=== PATIENT | male | born 2005 | race Caucasian/White ===

== ENCOUNTER 2024-02-21 21:45 | Emergency (ER) | payer SELFPAY ==
[2024-02-21 21:50] VITALS: BP 115/72; PULSE 75; RESP 18; TEMP 36.6; O2SAT 98; BMI 31.0
[2024-02-22 01:53] VITALS: BP 127/69; PULSE 64; RESP 16; TEMP 36.4; O2SAT 97
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
[2024-02-22] MEDS: Silver Sulfadiazine 1 % Cream 20 GM TUBE 1 APPL TOPICAL (02:59)
[2024-02-22 03:03] VITALS: BP 127/69; PULSE 64; RESP 16; TEMP 36.4; O2SAT 97
== END 2024-02-22 03:04 | disposition home or self-care (01) ==
PROVIDERS: Emergency Provider Internal Medicine
DX: T23.262A Burn of second degree of back of left hand, initial encounter (principal); X02.8XXA Other exposure to controlled fire in building or structure, initial encounter; Y93.G3 Activity, cooking and baking; Y92.000 Kitchen of unspecified non-institutional (private) residence as the place of occurrence of the external cause; Y99.9 Unspecified external cause status
CPT/HCPCS: 16000; 99283

== ENCOUNTER 2024-06-08 11:19 | Emergency (ER) | payer MEDICAID, SELFPAY ==
[2024-06-08 11:57] VITALS: BP 108/65; PULSE 70; RESP 18; TEMP 36.6; O2SAT 98; BMI 34.2
--- NOTE | 2024-06-08 11:57 | ED_ITS ---
HPI - General Adult General Chief complaint: Dental/Oral Stated complaint: Dental Pain Time Seen by Provider: 06/08/24 12:05 Source: patient Mode of arrival: ambulatory Limitations: no limitations History of Present Illness ED Provider: Raiza Ruano PA-C HPI narrative: Patient is a 18 year old assigned male at with no reported medical history presenting to the emergency department today with right upper and lower dental pain. Patient states that over the last month he has had right upper and right lower dental pain. Patient states it has been years since he last saw a dentist. Patient states that he attempted to go to urgent care yesterday but they would not take his CT based insurance. Patient denies any dizziness, lightheadedness, abdominal pain, nausea, vomiting, fever, chills, blurry vision, double vision, loss of vision, chest pain, difficulty breathing, shortness of breath, back pain, night sweats, pain with urination, increased urinary frequency, increased urinary urgency, blood in his urine or stool, syncope or a near syncopal episode, recent trauma or falls, bowel incontinence, bladder incontinence, or any other complaints at this time. Onset (ago): month(s) (1) Location: mouth and right Relieving factors: none Exacerbating factors: none Associated symptoms: denies other symptoms Treatments prior to arrival: none Related Data Previous Rx's ?Medication ?Instructions ?Recorded naproxen 500 mg tablet 500 mg PO BID 7 days #14 tabs 06/08/24 penicillin V potassium 500 mg 500 mg PO BID 10 days #20 tabs 06/08/24 tablet Allergies Allergy/AdvReac Type Severity Reaction Status Date / Time No Known Allergies Allergy Verified 06/08/24 11:58 Review of Systems Constitutional: Constitutional: Reports no additional constitutional complaints, Denies chills, Denies fever(s) and Denies night sweats Eyes: Eyes: Reports no additional eye complaints, Denies blurry vision, Denies change in vision, Denies diplopia, Denies eye discharge, Denies loss of vision and Denies eye pain ENT: Denies dizziness Comments: right sided upper and lower dental pain Cardiovascular: Cardiovascular: Reports no additional cardiovascular complaints, Denies chest pain, Denies lightheadedness, Denies Loss of Consciousness and Denies dyspnea Respiratory: Respiratory: Reports no additional respiratory complaints and Denies dyspnea Gastrointestinal: Gastrointestinal: Reports no additional gastrointestinal complaints, Denies abdominal pain, Denies melena, Denies hematochezia, Denies change in bowel habits and Denies change in stool character Genitourinary: Genitourinary: Reports no additional male genitourinary complaints, Denies hematuria, Denies oliguria, Denies difficulty urinating, Denies dysuria, Denies urinary frequency, Denies urinary hesitancy, Denies urinary incontinence and Denies urinary urgency Musculoskeletal: Musculoskeletal: Reports no additional musculoskeletal complaints, Denies numbness and Denies tingling Neurologic: Denies dizziness, Denies loss of vision, Denies numbness and Denies tingling Psychiatric: Psychiatric: Reports no additional psychiatric complaints Endocrine: Endocrine: Reports no additional endocrine complaints Hematologic/Lymphatic: Hematologic/Lymphatic: Reports no additional hematol ogic/lymphatic complaints Allergic/Immunologic: Allergic/Immunologic: Reports no additional allergic/immunologic complaints PMFSH Past Medical History Attestation statement: The following information was validated with the patient. Source: old records reviewed and nursing notes reviewed Social History Social History Advance Directives: No Advance Directives Information Provided: Yes Physical Exam ED Vital Signs: Vital Signs - 24 hr 06/08/24 11:57 06/08/24 12:15 Temperature 97.9 F 97.9 F Pulse Rate 70 70 Respiratory Rate 18 18 Blood Pressure 108/65 108/65 Pulse Oximetry 98 98 Oxygen Delivery Method Room Air Room Air BMI result Body Mass Index 34.2 Const General: cooperative, no acute distress, alert and awake Nutritional Appearance: well nourished Orientation/consciousness: patient oriented x3 Limitations: no limitations [facility] Head: Yes normal to inspection and Yes atraumatic Ears: hearing grossly normal bilaterally and external ears normal General nose exam: Normal external nose present, no nasal discharge noted and no epistaxis Face and sinus: Yes normal facial exam, No abrasion and No laceration Mouth: Normal oral and palatal mucosa present, no drooling and no muffled voice Teeth and gingiva: poor dentition and other (large dental cavity in tooth 31 with minimal erythema / pain with palpation) Eyes General: appearance normal, both eyes and all related structures Periorbital: periorbital findings normal Eyelids: Yes eyelids normal Conjunctivae: conjunctivae normal Pupils: Equal, round and reactive pupils present EOM: EOMs intact bilaterally Neck Neck: Yes normal visual inspection, Yes full ROM and Yes no lymphadenopathy Chest Chest palpation & inspection: normal inspection of the chest Resp Effort & Inspection: normal respiratory effort and able to speak in complete sentences GI Inspection: Yes normal to inspection Neuro General: patient oriented x3, moves all extremities and CN's II-XI intact bilaterally Cranial nerves: Yes Equal, round and reactive pupils present Cognition (Neuro): normal cognition Extrem General: Yes normal to inspection, Yes full ROM and Yes capillary refill normal Psych Appearance: grossly normal Mental Status: mental status grossly normal Affect: normal affect Attitude: cooperative Thought process: Normal thought process present Thought content: Normal thought content present Insight: Good insight present (Psych) Medical Decision Making Medical Decision Making MDM Narrative: Patient is a 18 year old assigned male at with no reported medical history presenting to the emergency department today with right upper and lower dental pain. Patient's physical exam was as noted in the physical exam portion of this note. Patient's clinical presentation is most consistent with poor dentition and possible developing infection. I explained my physical exam findings to the patient. I answered all questions asked by the patient. I stressed the importance of the patient taking his medication as directed (either prescribed or as the over the counter packaging recommends). I confirmed with the patient that he had no concerns of being able to pay for his prescriptions at the pharmacy of his choice. I stressed the importance of the patient following up with his primary care provider and a dentist. I stressed the importance of the patient returning to the emergency department immediately if his symptoms were to worsen or if he were to develop any dizziness, shortness of breath, difficulty breathing, chest pain, blurry vision, loss of vision, nausea, vomiting, abdominal pain, fever, chills, back pain, or any other complaints. Patient verbalized agreement and understanding with this treatment plan and discharge. Differential Diagnosis Differential Diagnoses: The differential diagnosis associated with the presentation includes Dental pain Dental caries Dental infection Admission/Observation Consideration of admission/observation: Escalation of care including admission/observation considered Patient would have been admitted to the hospital had his clinical presentation warranted hospital admission. Prescription Management I considered prescription management with: Pain Medication (patient prescribed pain medication) and Antibiotic (patient prescribed an antibiotic for possible developing dental infection) Discharge Plan Discharge Clinical Impression: Toothache, Dental infection Patient Disposition: Home, Self-Care Instructions: Dental Abscess (ED), Toothache (ED) Additional Instructions: Follow up with your primary care provider and a dentist. Return to the emergency department immediately if your symptoms worsen or if you develop any numbness, tingling, dizziness, shortness of breath, difficulty breathing, chest pain, blurry vision, loss of vision, nausea, vomiting, abdominal pain, fever, chills, back pain, or any other complaints. Call or visit any of the clinics below to establish with a dentist: [facility] [address] [place] [address] [facility] [address] [place] [address] [facility] [[email or web address]] [address] [facility], [address] [address] [facility] [address] [place] [id number] [facility] [address] [place] [address] [place] [address] [place] [address] Please see the information below about our Patient Portal. If you are not yet enrolled in the [facility] Patient Portal, you will receive an enrollment email invitation following your visit to any [facility] setting. You may also self-enroll in the Patient Portal by visiting our website: [email or web address] The following information is required to access the Patient Portal: - Your [facility] Medical Record Number - Your personal home email address (must match what is in your electronic medical record, Registration staff can assist with this) - Name - Date of Capabilities of the Patient Portal: - Message some providers - View upcoming appointments - Access your health summary, medical history, and visit history - View current conditions and allergies - View procedure and lab results - View your medications, including guidelines, side effects, and precautions - Complete pre-appointment questionnaires requested by your provider - Ready summary reports of your office visits and procedures To access the Patient Portal Mobile Jake, follow these directions: - Search [employer] in the Jake Store or Google Play Store - Download the Jake - Search for [facility] - Enter your login/password Prescriptions: New penicillin V potassium 500 mg tablet 500 mg PO BID 10 Days Qty: 20 0RF naproxen 500 mg tablet 500 mg PO BID 7 Days Qty: 14 0RF Referrals: [facility] Family Medicine [Provider Group] (Call to establish and follow up with a primary care provider. If you already have a primary care provider, please follow up with them.) [facility] Primary CareDennis [Provider Group] (Call to establish and follow up with a primary care provider. If you already have a primary care provider, please follow up with them.) [facility] Primary CareDae [Provider Group] (Call to establish and follow up with a primary care provider. If you already have a primary care provider, please follow up with them.) [facility] Primary CareMarcelino [Provider Group] (Call to establish and follow up with a primary care provider. If you already have a primary care provider, please follow up with them.) Stand Alone Forms: Work/School Release Interventions: ED Discharge Assessment Last Done: 06/08/24 12:15 Discharge Date/Time: 06/08/24 12:15 Print Language: Polish
[2024-06-08 12:15] VITALS: BP 108/65; PULSE 70; RESP 18; TEMP 36.6; O2SAT 98
--- OUTSIDE RECORDS SUMMARY | 2024-06-08 14:02 | XMS_ITS | Patient Health Record ---
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 Notes/Report: Received Date: FASTING: UNKNOWN medMATCH Summary See Note Prescribed Prescribed Not Prescribed Consistent Inconsistent Inconsistent Amphetamine Marijuana Metabolite Buprenorphine NEGATIVE <5 ng/mL Fentanyl NEGATIVE <0.5 ng/mL Desmethyltramadol NEGATIVE <100 ng/mL Tramadol NEGATIVE <100 ng/mL Tramadol Comments See Note See LDT No sang Alcohol Metabolites NEGATIVE <500 ng/mL Amphetamines POSITIVE <500 ng/mL Amphetamine 1538 <250 ng/mL medMATCH Amphetamine INCONSISTENT Amphetamines Comments See Note See Am phetamines Notes, LDT Notes Barbiturates NEGATIVE <300 ng/mL Benzodiazepines NEGATIVE <100 ng/mL Cocaine Metabolite NEGATIVE <150 ng/mL 6 Acetylmorphine NEGATIVE <10 ng/mL Marijuana Metabolite POSITIVE <20 ng/mL Marijuana Metabolite >5000 <5 ng/mL medMATCH Marijuana Metab INCONSISTENT Marijuana Comments See Note See Adri damian Notes, LDT Notes Methadone Metabolite NEGATIVE <100 ng/mL Opiates NEGATIVE <100 ng/mL Oxycodone NEGATIVE <100 ng/mL Creatinine 77.5 > or = 20.0 mg/dL pH 7.1 4.5-9.0 Oxidant NEGATIVE <200 mcg/mL Notes and Comments See Note This drug testing is for medical treatment only. Analysis was performed as non-forensic testing and these results should be used only by healthcare providers to render diagnosis or treatment, or to monitor progress of medical conditions. Amphetamines Notes: Amphetamine detected is consistent with the use of the drug Amphetamine. Amphetamine can be a prescribed drug and is also a metabolite of methamphetamine. Marijuana Notes: Marijuana Metabolite detected is consistent with exposure to Marijuana (THC) and/or hemp derived products. Some jurisdictions do not include hemp within the definition of Marijuana. LDT Notes: Confirmation tests were developed and their analytical performance characteristics have been determined by [facility]. It has not been cleared or approved by the FDA. This assay has been validated pursuant to the CLIA regulations and is used for clinical purposes. medMATCH(R) enables providers to identify if drug use is consistent or inconsistent with a corresponding prescribed medication(s) list. Healthcare Providers needing Interpretation assistance, please contact us at [phone] ( ) M-F, 8am to 10pm EST Methamphetamine NEGATIVE <250 ng/mL Phencyclidine NEGATIVE <25 ng/mL Rapid Strep Test IH Reviewed date:03/27/2024 12:48:42 PM Interpretation:Positive Performing Lab: Notes/Report: Positive Lot No. [id number] Exp. Date 09/14/25 result pos Internal Proc. Control Solution green Internal Proc. Control Cartridge present Reason For Referral No Information Medications Medication SIG (Take, Route, Frequency, Duration) Notes Start Date End Date Status Polymyxin B-Trimethoprim 05971-2.1 UNIT/ML 1 drop into affected eye Ophthalmic Four times a day for 5 days 03/27/2024 Active Propranolol HCl 20 MG 1 tablet Orally Twice a day for 30 day(s) 12/22/2021 Not-Taking Sertraline HCl 25 MG 3 tablets Orally At Bedtime for 90 days Please remind patient to take 2 tablets of sertraline from 12.10.21-12.24.21. On 12.25.21 patient was instructed to take 3 tablets at bedtime. Not-Taking Adderall 10 MG 1 tablet Orally in the afternoon for 90 days 90 days supply, provider on leave Active Adderall 20 MG 1 tab(s) orally In the Morning for 90 days 90 days supply, provider on leave Active Sertraline HCl 100 MG 1 tablet Orally Once a day for 30 days Active Penicillin V Potassium 500 MG 1 tablet Orally Twice a day for 10 day(s) 03/27/2024 Active Albuterol Sulfate 108 (90 Base) MCG/ACT 2 puff as needed Inhalation every 4 hrs prn for 30 days may use generic covered by insurance 02/16/2022 Not-Taking SUMAtriptan Succinate 50 MG 1 tab(s) orally once and may take a second dose after two hours only if the symptoms persist. Not to exceed 2 doses in 24 hours for 30 days 12/22/2021 Not-Taking Sertraline HCl 100 MG 1 tablet Orally Once a day for 90 days Active Immunizations Vaccine Route Administration Date Status Comme nts COVID-19 Pfizer BioNTech 12+ ([facility] Imported) 208 Unknown 07/01/2020 Administered COVID-19 Pfizer BioNTech 12+ ([facility] Imported) 208 Unknown 07/23/2020 Administered COVID-19 Pfizer BioNTech Vaccine (HRSA) IM Intramuscular 03/09/2021 Administered eua given DTaP ([facility] Imported) 107 Unknown 01/14/2005 Administer ed DTaP (Historical) Unknown 2003 Administered DTaP (Historical) Unknown 2003 Administered DTaP (Historical) Unknown 02/04/2004 Administered DTaP (Historical) Unknown 01/14/2005 Administered DTaP (Historical) Unknown 10/24/2007 Administered Hep A Pediatric (State Supplied) IM Intramuscular 12/18/2012 Administered Hep A Pediatric (State Supplied) IM Intramuscular 07/11/2013 Administered Hep B ([facility] Imported) 45 Unknown 2003 Administer ed Hep B ([facility] Imported) 45 Unknown 2003 Administer ed Hep B (Historical Adult) Unknown 2003 Administere d Hep B (Historical Adult) Unknown 2003 Administere d Hep B (Historical Adult) Unknown 05/05/2004 Administere d Hib (Historical Type Unknown) Unknown 2003 Administered Hib (Historical Type Unknown) Unknown 2003 Administered Hib (Historical Type Unknown) Unknown 02/04/2004 Administered Hib (Historical Type Unknown) Unknown 01/15/2005 Administered Hib Unspecified ([facility] Imported) 17 Unknown 01/14/2005 Administered HPV (Declined) Unknown 11/13/2014 Pending HPV (State Supplied) IM Intramuscular 04/26/2016 Administe red HPV (State Supplied) IM Intramuscular 11/11/2016 Administe red Influenza (VFC 3 and above preservative free) IM Intramuscular 12/18/2012 Administered Influenza (VFC 3 and above preservative free) IM Intramuscular 11/13/2014 Administered Influenza Quad (VFC 3 and above preservative free) IM Intramuscular 01/24/2014 Administered Influenza Quad (VFC 3 and above preservative free) IM Intramuscular 02/05/2016 Administered Influenza Quad (VFC 3 and above preservative free) IM Intramuscular 11/11/2016 Administered Influenza Quad (VFC 3 and above preservative free) IM Intramuscular 01/23/2018 Administered Influenza Quad FluLaval (State Supplied 6mo+ preservative free) IM Intramuscular 01/02/2019 Administered Influenza Quad FluLaval (State Supplied 6mo+ preservative free) IM Intramuscular 12/27/2019 Administered Influenza Quad FluLaval (State Supplied 6mo+ preservative free) IM Intramuscular 03/19/2021 Administered IPV (Historical) Unknown 2003 Administered IPV (Historical) Unknown 2003 Administered IPV (Historical) Unknown 08/05/2005 Administered IPV (Historical) Unknown 10/24/2007 Administered Mening (Declined) Unknown 11/13/2014 Pending Mening Conj. Menactra MCV4P (State supplied) IM Intramuscular 11/27/2014 Administered Mening Conj. Menactra MCV4P (State supplied) IM Intramuscular 10/14/2020 Administered MMR (Historical) Unknown 08/03/2004 Administered MMR (Historical) Unknown 10/23/2005 Administered PCV 7 (Before 4-2010 Historical) Unknown 2003 Administered PCV 7 (Before Historical) Unknown 2003 Administered PCV 7 (Before Historical) Unknown 02/04/2004 Administered PCV 7 (Before Historical) Unknown 08/03/2004 Administered Tdap (Declined) Unknown 11/13/2014 Pending Tdap (State supplied) IM Intramuscular 11/27/2014 Administ ered Varicella (Historical) Unknown 08/03/2004 Administered Varicella (Historical) Unknown 10/24/2007 Administered Social History Tobacco Use: Social History Observation Description Date Details (start date - stop date) Current Smoker NA - NA Sex Assigned At : Social History Observation Description Sex Assigned At Male Smoking Question Answer Notes Are you a: never smoker Sexual History Question Answer Notes Had sex in the past 12 months Yes with Women only Have you ever had an STD? No Tobacco Control (Standard) Question Answer Notes Tobacco use: Current every day smoker Section Notes: lives w mom no smokers at ho me lives w mom lives w mom lives w mom lives w mom lives w mom lives w mom lives w mom lives w mom lives w mom lives w mom lives w mom lives w mom lives w mom lives w mom lives w mom lives w mom lives w mom lives w mom lives w mom lives w mom lives w mom lives w mom lives w mom lives w mom lives w mom lives w mom lives w mom lives w mom lives w mom lives w mom lives w mom lives w mom lives w mom lives w mom lives w mom lives w mom lives w mom lives w mom lives w mom no smokers at ho me lives w mom no smokers at ho me lives w mom no smokers at ho me lives w mom no smokers at ho me lives w mom no smokers at ho me lives w mom no smokers at ho me lives w mom no smokers at ho me lives w mom no smokers at ho me lives w mom no smokers at ho me lives w mom no smokers at ho me lives w mom no smokers at ho me lives w mom no smokers at ho me lives w mom no smokers at ho me lives w mom no smokers at ho me lives w mom no smokers at ho me lives w mom no smokers at ho me lives w mom no smokers at ho me lives w mom no smokers at ho me lives w mom no smokers at ho me lives w mom no smokers at ho me Problems Problem Type SNOMED Code ICD Code Onset Dates Problem Status W/U Status Risk Notes Problem [id number] Generalized anxiety disorder (F41.1) Active confirmed Problem [id number] Alcohol use disorder, mild, abuse (F10.10) Active confirmed Problem 8904511 ADHD (attention deficit hyperactivity disorder), predominantly hyperactive impulsive type (F90.1) Active confirmed Problem 0438904 Migraine with aura and without status migrainosus, not intractable (G43.109) Active confirmed Problem Generalized anxiety disorder (85736149) Anxiety neurosis (F41.1) Active confirmed Vital Signs Temperature 97.5 degrees Fahrenheit 03/27/2024 Respiratory Rate 16 /min 03/27/2024 Oximetry 100 % 03/27/2024 Blood pressure diastolic 69 mm Hg 06/21/2023 Height 67 in 06/21/2023 BMI Percentile 98.38 % 06/21/2023 Blood pressure systolic 123 mm Hg 06/21/2023 Weight 220.2 lbs 06/21/2023 BMI 34.48 kg/m2 06/21/2023 Encounters Encounter Location Date Provider Diagnosis [address] [address] 09/15/2023 Ale Gamboa ADHD (attention deficit hyperactivity disorder), predominantly hyperactive impulsive type F90.1 [place] [id number] 06/22/2023 Ale Kalyanil [address] [address] 08/10/2023 Ale Gamboa ADHD (attention deficit hyperactivity disorder), predominantly hyperactive impulsive type F90.[address] [address] 05/01/2024 Renetta Cordoba [address] [address] 06/21/2023 Renetta Cordoba Encounter for medication monitoring Z51.[address] [address] 03/27/2024 Schilling Lawrence Sore throat J02.9 ; Nasal congestion R09.81 ; Bacterial conjunctivitis H10.9 and Strep pharyngitis J02.[address] [place] [address] 10/05/2023 Ale Bayerl ADHD (attention deficit hyperactivity disorder), predominantly hyperactive impulsive type F90.1 and Generalized anxiety disorder F41.[address] [place] [address] 06/21/2023 Ale Bayerl ADHD (attention deficit hyperactivity disorder), predominantly hyperactive impulsive type F90.1 and Generalized anxiety disorder F41.[address] [place] [address] 10/08/2023 Sara Bynum Generalized anxiety disorder F41.1 and ADHD (attention deficit hyperactivity disorder), predominantly hyperactive impulsive type F90.[address] [place] [address] 10/20/2023 Sara Ray ADHD (attention deficit hyperactivity disorder), predominantly hyperactive impulsive type F90.1 and Generalized anxiety disorder F41.[address] [place] [address] 11/03/2023 Sara Ray ADHD (attention deficit hyperactivity disorder), predominantly hyperactive impulsive type F90.1 and Generalized anxiety disorder F41.[address] [place] [address] 11/29/2023 Sara Bynum ADHD (attention deficit hyperactivity disorder), predominantly hyperactive impulsive type F90.1 and Generalized anxiety disorder F41.[address] [place] [address] 12/19/2023 Sara Bynum ADHD (attention deficit hyperactivity disorder), predominantly hyperactive impulsive type F90.1 and Generalized anxiety disorder F41.[address] [place] [address] 01/02/2024 Sara Bynum ADHD (attention deficit hyperactivity disorder), predominantly hyperactive impulsive type F90.1 and Generalized anxiety disorder F41.[address] [place] [address] 06/30/2023 Sara Bynum Generalized anxiety disorder F41.1 and ADHD (attention deficit hyperactivity disorder), predominantly hyperactive impulsive type F90.[address] [place] [address] 07/11/2023 Sara Bynum Generalized anxiety disorder F41.1 and ADHD (attention deficit hyperactivity disorder), predominantly hyperactive impulsive type F90.[address] [place] [address] 01/16/2024 Sara Faulknerpelier ADHD (attention deficit hyperactivity disorder), predominantly hyperactive impulsive type F90.1 and Generalized anxiety disorder F41.[address] [place] [address] 05/15/2024 Sara Faulknerpelier ADHD (attention deficit hyperactivity disorder), predominantly hyperactive impulsive type F90.1 and Generalized anxiety disorder F41.[address] [place] [address] 05/28/2024 Sara Faulknerpelier ADHD (attention deficit hyperactivity disorder), predominantly hyperactive impulsive type F90.1 and Generalized anxiety disorder F41.[address] [place] [address] 01/03/2024 Ale Cooper ADHD (attention deficit hyperactivity disorder), predominantly hyperactive impulsive type F90.1 and Generalized anxiety disorder F41.1 Assessments Encounter Date Diagnosis (ICD Code) Assessment Notes Treatment Notes Treatment Clinical Notes Section Notes 06/21/2023 Encounter for medication monitoring (ICD-10 - Z51.81) UDS collected with problems and sent to lab. Controlled med agreement reviewed with pt, he verbalzied good understanding. Agreement then signed and will be scanned to chart. 06/21/2023 ADHD (attention deficit hyperactivity disorder), predominantly hyperactive impulsive type (ICD-10 - F90.1) 06/30/2023 Generalized anxiety disorder (ICD-10 - F41.1) 07/11/2023 Generalized anxiety disorder (ICD-10 - F41.1) 10/05/2023 ADHD (attention deficit hyperactivity disorder), predominantly hyperactive impulsive type (ICD-10 - F90.1) Coding; use Established E&M Add 95 Modifier for video 10/08/2023 Generalized anxiety disorder (ICD-10 - F41.1) Coding: use Established E&M code Add FQ modifier for audio only . Coding: use Established E&M code Add FQ modifier for audio only 08/10/2023 ADHD (attention deficit hyperactivity disorder), predominantly hyperactive impulsive type (ICD-10 - F90.1) 09/15/2023 ADHD (attention deficit hyperactivity disorder), predominantly hyperactive impulsive type (ICD-10 - F90.1) 10/20/2023 ADHD (attention deficit hyperactivity disorder), predominantly hyperactive impulsive type (ICD-10 - F90.1) Coding: use Established E&M code Add FQ modifier for audio only 11/03/2023 ADHD (attention deficit hyperactivity disorder), predominantly hyperactive impulsive type (ICD-10 - F90.1) Coding: use Established E&M code Add FQ modifier for audio only 11/29/2023 ADHD (attention deficit hyperactivity disorder), predominantly hyperactive impulsive type (ICD-10 - F90.1) Coding: use Established E&M code Add FQ modifier for audio only 12/19/2023 ADHD (attention deficit hyperactivity disorder), predominantly hyperactive impulsive type (ICD-10 - F90.1) Coding: use Established E&M code Add FQ modifier for audio only 01/02/2024 ADHD (attention deficit hyperactivity disorder), predominantly hyperactive impulsive type (ICD-10 - F90.1) Coding: use Established E&M code Add FQ modifier for audio only 01/16/2024 ADHD (attention deficit hyperactivity disorder), predominantly hyperactive impulsive type (ICD-10 - F90.1) Coding: use Established E&M code Add FQ modifier for audio only 03/27/2024 Nasal congestion (ICD-10 - R09.81) 03/27/2024 Sore throat (ICD-10 - J02.9) 01/03/2024 ADHD (attention deficit hyperactivity disorder), predominantly hyperactive impulsive type (ICD-10 - F90.1) Coding; use Established E&M Add 95 Modifier for video. Psychotherapy Visit Only: Add FQ modifier for audio only Psychiatry: Phone Medication Management: Use 31212- (11-20min) 35458 (21-30min) 05/15/2024 ADHD (attention deficit hyperactivity disorder), predominantly hyperactive impulsive type (ICD-10 - F90.1) Coding: use Established E&M code Add FQ modifier for audio only 05/28/2024 ADHD (attention deficit hyperactivity disorder), predominantly hyperactive impulsive type (ICD-10 - F90.1) Coding: use Established E&M code Add FQ modifier for audio only 05/28/2024 Generalized anxiety disorder (ICD-10 - F41.1) Coding: use Established E&M code Add FQ modifier for audio only 05/15/2024 Generalized anxiety disorder (ICD-10 - F41.1) Coding: use Established E&M code Add FQ modifier for audio only 01/16/2024 Generalized anxiety disorder (ICD-10 - F41.1) Coding: use Established E&M code Add FQ modifier for audio only 03/27/2024 Bacterial conjunctivitis (ICD-10 - H10.9) Suspect pink eye based on symptoms and contact with son. Will treat with antibiotic. [place]: Care Instructions material was printed, reviewed and given to patient. F/U in clinic if symptoms do not improve. 01/03/2024 Generalized anxiety disorder (ICD-10 - F41.1) Coding; use Established E&M Add 95 Modifier for video. Psychotherapy Visit Only: Add FQ modifier for audio only Psychiatry: Phone Medication Management: Use 45064- (11-20min) 86883 (21-30min) 01/02/2024 Generalized anxiety disorder (ICD-10 - F41.1) Coding: use Established E&M code Add FQ modifier for audio only 12/19/2023 Generalized anxiety disorder (ICD-10 - F41.1) Coding: use Established E&M code Add FQ modifier for audio only 11/29/2023 Generalized anxiety disorder (ICD-10 - F41.1) Coding: use Established E&M code Add FQ modifier for audio only 11/03/2023 Generalized anxiety disorder (ICD-10 - F41.1) Coding: use Established E&M code Add FQ modifier for audio only 10/05/2023 Generalized anxiety disorder (ICD-10 - F41.1) Coding; use Established E&M Add 95 Modifier for video 10/08/2023 ADHD (attention deficit hyperactivity disorder), predominantly hyperactive impulsive type (ICD-10 - F90.1) Coding: use Established E&M code Add FQ modifier for audio only . Coding: use Established E&M code Add FQ modifier for audio only 10/20/2023 Generalized anxiety disorder (ICD-10 - F41.1) Coding: use Established E&M code Add FQ modifier for audio only 07/11/2023 ADHD (attention deficit hyperactivity disorder), predominantly hyperactive impulsive type (ICD-10 - F90.1) 06/30/2023 ADHD (attention deficit hyperactivity disorder), predominantly hyperactive impulsive type (ICD-10 - F90.1) 06/21/2023 Generalized anxiety disorder (ICD-10 - F41.1) 03/27/2024 Strep pharyngitis (ICD-10 - J02.0) Strep Throat: Care Instructions material was printed, reviewed and given to patient. Highlighted completion of anitbiotic. Work excuse note provided. May have associated viral URI illness. Discussed: , extra hydration with fluids like water; for nasal congestion- nasal saline spray, cool mist humidifier; for sore throat- salt water gargles, eating cold/frozen desserts, sucking on ice or hard candy; for cough- honey, sleeping with head of bed elevated, hot tea/soup, cough lozengers and ibuprofen/tylen ol as needed for fever and/or comfort. If symptoms worsen or no dont resolve f/u in clinic 05/01/2024 Coding; use Established E&M Add 95 Modifier for video. Psychotherapy Visit Only: Add FQ modifier for audio only Psychiatry: Phone Medication Management: Use 01386- (11-20min) 31067 (21-30min) Plan Of Treatment Pending Test Test Name Order Date Comp Metabolic Panel w/eGFR 93623 2014 Comp Metabolic Panel w/eGFR 67910 2015 CBC (H/H,RBC,Indices,WBC,Plt) 1759 10/05 CBC (H/H,RBC,Indices,WBC,Plt) 1759 08/15 TSH 899 08/15/2014 T4,Free 866 08/15/2014 TSH w/Free T4 rfx 91786 10/06/2015 HIV Screen DECLINED 07/10/2021 HIV Screen DECLINED 10/22/2021 Chlamydia/GC Declined 45744 07/10/2021 HCV Cohort screening DECLINED 10/05 Next Appt Details Provider Name:Sara beltran, 06/11/2024 04:30:00 PM, [address] [place] [address], [place], [address], Provider Name:Ale Gamboa , 06/18/2024 02:40:00 PM, [address] [facility], [place], [address], Insurance Providers Payer Name Payer Address Payer Phone Subscriber Number Group Number Insured Name Patient Relationship to Insured Coverage Start Date Coverage End Date Medicaid [place] [address] [phone] [id number] Bryant Prasad Self - patient is the insured [place] [address] [phone] [id number] Bryant Prasad Self - patient is the insured Medical (General) History Medical History History ICD Code - - -MEDICAL HISTORY- - - ADHD Anxiety Allergic Rhinitis Enrolled in [facility] @ [facility] Migraines - - -HEALTH CARE MAINTENANCE- - - HCM - A1c: HCM - Lipids: ASCVD Risk: Assess at 38 HCM GFR/Cr: HCM - Colonoscopy: Due at 43 HCM - PSA: HCM - DEXA: Screening - HIV: Screening - HCV: Screening - Chl/GC: Smoking Hx: Surgical History Surgery Date(Month/Year) Hospitalization History Reason Date(Month/Year)
--- OUTSIDE RECORDS SUMMARY | 2024-06-08 14:02 | XMS_ITS ---
Author Organization [facility] [employer] Address [address] [place] [phone] Care Team Providers Care Headmaster/Mistress Name Role Phone Renetta Lopez Primary Care Provider Sara Ray Unavailable [phone] REASON FOR VISIT * Recall Therapy AT, Tele Phone Visit Social History Sex Assigned At : Social History Observation Description Sex Assigned At Male Encounters Encounter Location Date Provider Diagnosis [place] [id number] 05/28/2024 Sara Ray ADHD (attention deficit hyperactivity disorder), predominantly hyperactive impulsive type F90.1 and Generalized anxiety disorder F41.1 Assessments Encounter Date Diagnosis (ICD Code) Assessment Notes Treatment Notes Treatment Clinical Notes Section Notes 05/28/2024 ADHD (attention deficit hyperactivity disorder), predominantly hyperactive impulsive type (ICD-10 - F90.1) Coding: use Established E&M code Add FQ modifier for audio only 05/28/2024 Generalized anxiety disorder (ICD-10 - F41.1) Coding: use Established E&M code Add FQ modifier for audio only Plan Of Treatment Next Appt Details Provider Name:Sara beltran, 06/11/2024 04:30:00 PM, [address] [place] [address], [id number], Provider Name:Ale Gamboa , 06/18/2024 02:40:00 PM, [address] [place], [address], Progress Notes * Diaz RODRIGEUZOB:[birth year]03 (18 yo M)Acc No.[id number]:05/28/2024 [facility] Phone Patient:?Bryant RODRIGUEZ Provider:?Sara Ray :2005???Age:18 Y???Sex:Male Miguelangel e:05/28/2024 External Visit ID:[id number] Address:[address] [place] [address], [address], [place], [place] [address] Pcp:Renetat Cordoba Subjective: * Chief Complaints: * ???* Recall Therapy ATTele Phone Visit * HPI: ??? VISIT DURATION:?Visit Times?Start Time?4:30pm ?End Time?5:00pm ?Was seen by?_Sara Ray LCSW.?Seen on?Date?05/28/2024 _ ???Telehealth Phone Session:?Telehealth Phone Session Consent?Verbal telehealth phone consent:?My Name is __. This visit is occurring via phone. You can opt-out or refuse at any time. Do I have your consent (or consent for your minor child) for this phone visit? Please verify your Name and Date of . ?Is written consent in patient documents:?Yes ?Telehealth Phone Visit Verifications?Patient states they joined from a secure and private location.?Yes * Medical History:? * Surgical History:? * Hospitalization/Major Diagno stic Procedure:? * Medications:? Objective: * Vitals:? * Physical Examination:? Assessment: * Assessment: 1.?ADHD (attention deficit h yperactivity disorder), predominantly hyperactive impulsive type - F90.1 (Primary)???2.?Generalized anxiety disorder - F41.1??? Coding: use Established E&M code Add FQ modifier for audio only. Plan: * Treatment: * Procedure Codes:? Care Plan: * Problems:? * Billing Information: * Visit Code:? 70196 Psychotherapy 30. Modifiers: FQ * Procedure Codes:? Care Plan Details* AnxietyGoalObjectiveInter ventionG1. Better manage anxiety Goal Progress:45%Goal Outcome:In ProgressStart Date:06/04/2020ue Date:06/04/2025O1.Over the next 3 months, client will learn and implement 2-3 coping and calming skills to help manage emotions when feeling overwhelmed, as evidenced by self report, therapist observation in session, or measurement based care in Mir.I1.Individual TherapyModalityPyschotherapyFrequencyevery 2 weeksO2.Over the next 12 months, client will take medication as prescribed 90% of the time, as self-reported by client, observed by psych during session and reported in MirI1.PsychiatryModalityPsychiatryFrequencyevery 2 months * Care Plan Details Program:?[facility] CP - Was a careplan review c ompleted in this session??No CP - Careplan review progres s (updated during review only)?Client was present for care plan review, and developed the goals and objectives with the therapist and were in agreement with the plan.Client reports improvement with anxiety and managing appropriately. He is working on confidence within his parenting skills and challenging his thoughts. Client also reports improvements with the amount he overthinks as well CP - Last careplan review? CP - Next careplan review? CP - Amount of visit duratio n?30, 45, and 60 minute individual sessions CP - Expected duration of tr eatment:?06/04/2025 Psychotherapy Progress Note Therapy - Who was present in this session??Child/Client Therapy - Were Measurement B ased Care assessments completed prior to session??No Reason why measurement based care assessments were not completed?Client declined to complete assessments this week Therapy - Intervention?Devel oped/Practiced coping skills;Developed/Practiced emotional regulation skills;Developed/Practiced mindfulness strategies;Developed/Practiced parenting strategies;Developed/Practiced relaxation strategies;Provided psycho-education;Psychoeducation provided;Reframed;Utilized Cognitive Behavioral Therapy (CBT) Therapy - Has client had any suicidal thoughts since last session??No Therapy - Has client had any homicidal thoughts since last session??No Therapy - Observed Mental St atus?Mood;Behavior;Substance use;Attitude;Attention;Speech;Thought process;Orientation;Judgement Mood?Calm Behavior?Cooperative Substance use?NA No substanc e use Attitude?Average Attention?Normal Thought Process?Age Appropri ate Speech?Normal Orientation?Oriented x3 Judgement?Intact Therapy - Client or caregive rs self report of status since last session and clinician observed changes in condition?client reports an increase of stress and anxiety - he reports lately he has been calling out of work and going in late which resulted in his boss having a talk with him. He reports this scared him about losing his job and he has been making sure he is getting on time and doing his job. He is worried about losing his job as it is a job he overall likes - he does identify it has been uncomfortable since the conversation and he feels as if coworkers do not like him. He is focusing on pushing through and hopes the feelings will pass. He identifies feeling the need to be perfect or he will be let go. This is contributing to the stress and anxiety the past few weeks Therapy - Description of int erventions provided?Poker Dealer provided skills to work through anxious thoughts - fact checking, looking for proof, utilizing self talk, perspective looking - was also provided with deep breathing and mindfulness strategies. Therapy - Client or caregive rs response to interventions?receptive Therapy - Follow up with?Cli ent in next visit Therapy - Indicate action pl an for client between sessions?Client to utilize skills discussed in session to manage anxious thoughts * Sign off status: Completed true * Provider:Justino Ray Date:? 025 Generated for Vito hennessy/Rush/Simone on:?06/08/2024 02:02 PM EDT History and Physical Notes * HPI (History of Present Illness) Category Sub-Category Detail Notes Category Not es VISIT DURATION Visit Times Start Time: 4:30pm End Time: 5:00pm Was seen by Patrick Otto Seen on Date: 05/28/2024 _ Telehealth Phone Session Telehealth Phon e Session Consent Verbal telehealth phone consent:: My Name is __. This visit is occurring via phone. You can opt-out or refuse at any time. Do I have your consent (or consent for your minor child) for this phone visit? Please verify your Name and Date of . Is written consent in patient documents: : Yes Telehealth Phone Visit Verifications Pat ient states they joined from a secure and private location.: Yes
--- OUTSIDE RECORDS SUMMARY | 2024-06-08 14:03 | XMS_ITS | Clinical Summary ---
Author Organization [facility] Address [address] [place] [address] Care Team Providers Care Butcher Helper Name Role Phone Unavailable Primary Care Provider Unavailabl e Immunizations Immunization Administration Dates Next Due Pfizer Purple Cap SARS-COV-2 Vaccination 021,07/01/2020 Social History Tobacco Use Types Packs/Day Years Used Date Smoking Tobacco: Never Assessed Sex and Gender Information Value Date Recorded Sex Assigned at Not on file Legal Sex Male 1:22 PM EDT Gender Identity Not on file Sexual Orientation Not on file Plan of Treatment Health Maintenance Due Date Last Done Comments MMR Vaccines (1 of 1 - Standard series) 08/03/2004 Varicella Vaccines (1 of 2 - 13+ 2-dose series) 08/03/2016 HPV Vaccines (1 - Male 3-dos e series) 08/03/2018 Annual Physical Exam 08/03/2021 Hepatitis B Vaccines (1 of 3 - 19+ 3-dose series) 08/03/2022 Tdap and Td Vaccines Adult 08/03/2022 COVID-19 Vaccine (3 - 2023-2 5 season) 2023 07/23/2020, 07/01/2020 Influenza Vaccine (#1) 2023 HIB Vaccines Aged Out No longer eligi ble based on patient's age to complete this topic Hepatitis A Vaccines Aged Out No long er eligible based on patient's age to complete this topic IPV Vaccines Aged Out No longer eligi ble based on patient's age to complete this topic Meningococcal Vaccine Aged Out No valdez ana eligible based on patient's age to complete this topic Pneumococcal Vaccine: Peds ( 0 to 5 Yrs) and At-Risk Pts (6 to 49 Yrs) Aged Out No longer eligible b ased on patient's age to complete this topic RSV <20 Months Aged Out No longer edna gible based on patient's age to complete this topic Insurance MEDICAID IN-STATE MEDICAID IN-STATE
--- OUTSIDE RECORDS SUMMARY | 2024-06-08 14:03 | XMS_ITS ---
Author Organization [facility] [employer] Address [address] [place] [phone] Care Team Providers Care Talent Development Specialist Name Role Phone Renetta Lopez Primary Care Provider [phone] Sara Ray Unavailable [phone] REASON FOR VISIT * Recall Therapy AT, Tele Phone Visit Social History Sex Assigned At : Social History Observation Description Sex Assigned At Male Encounters Encounter Location Date Provider Diagnosis [place] [id number] 05/15/2024 Sara Ray ADHD (attention deficit hyperactivity disorder), predominantly hyperactive impulsive type F90.1 and Generalized anxiety disorder F41.1 Assessments Encounter Date Diagnosis (ICD Code) Assessment Notes Treatment Notes Treatment Clinical Notes Section Notes 05/15/2024 ADHD (attention deficit hyperactivity disorder), predominantly hyperactive impulsive type (ICD-10 - F90.1) Coding: use Established E&M code Add FQ modifier for audio only 05/15/2024 Generalized anxiety disorder (ICD-10 - F41.1) Coding: use Established E&M code Add FQ modifier for audio only Plan Of Treatment Next Appt Details Provider Name:Sara beltran, 06/11/2024 04:30:00 PM, [address] [place] [address], [id number], Provider Name:Ale Gamboa , 06/18/2024 02:40:00 PM, [address] [place], [address], Progress Notes * Diaz RODRIGUEZOB:[birth year] (18 yo M)Acc No.[id number]:05/15/2024 [facility] Phone Patient:?Bryant RODRIGUEZ Provider:?Sara Ray :2005???Age:18 Y???Sex:Male Miguelangel e:05/15/2024 External Visit ID:[id number] Address:[address] [place] [address], [address], [place], [place] [address] Pcp:Renetta Cordoba Subjective: * Chief Complaints: * ???* Recall Therapy ATTele Phone Visit * HPI: ??? VISIT DURATION:?Visit Times?Start Time?10:30am ?End Time?11:00am ?Was seen by?_Sara Ray LCSW.?Seen on?Date?05/15/2024 _ ???Telehealth Phone Session:?Telehealth Phone Session Consent?Verbal [...] Problems:? * Billing Information: * Visit Code:? 12672 Psychotherapy 30. Modifiers: FQ * Procedure Codes:? [...] MirI1.PsychiatryModalityPsychiatryFrequencyevery 2 months * Care Plan Details Program:?[facility] CP - Was a careplan review c ompleted in this session??Yes Did client have DCF involvem ent since last review??N/A Client over 18 years old CP - Careplan review progres s (updated [...] to complete assessments this week Therapy - Intervention?Efrain oped/Practiced coping skills;Developed/Practiced emotional regulation skills;Developed/Practiced mindfulness strategies;Developed/Practiced parenting strategies;Developed/Practiced relaxation strategies;Provided psycho-education;Psychoeducation provided;Reframed;Utilized Cognitive Behavioral Therapy (CBT);Updated and reviewed care plan Therapy - Has client had any suicidal [...] last session and clinician observed changes in condition?Client reports work is going well - 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 He reports anxiety around his son is still high although there is improvement as his son is getting older. He is monitoring his reactions when his son falls ect to ensure he does not scare him ect. He also reports struggling with sleep recently and having stressful dreams - this made him feel exhausted throughout the day as he was not feeling rested at night. He reports sleep has been better this week. Careplan review complete. Therapy - Description of int erventions provided?Geothermal Technician provided skills to work through anxious thoughts [...] in session to manage anxious thoughts * Electronically co-signed by Norma Hernandez on 05/28/2024 at 09:29 AM EDT Sign off status: Completed true * Provider:Justino Ray Date:? 025 Generated for Vito hennessy/Rush/Simone on:?06/08/2024 02:02 PM EDT History and Physical Notes * HPI (History of Present Illness) Category Sub-Category Detail Notes Category Not es VISIT DURATION Visit Times Start Time: 10:30am End Time: 11:00am Was seen by _Patrick Resendez Seen on Date: 05/15/2024 _ Telehealth Phone Session Telehealth Phon e [...]
--- OUTSIDE RECORDS SUMMARY | 2024-06-08 14:03 | XMS_ITS ---
Author Organization [facility] [employer] [facility] [employer] Address [address] [place] [phone] Care Team Providers Care Sales Clerk Food Name Role Phone Renetta Lopez Primary Care Provider Ale Gamboa Unavailable [phone] REASON FOR VISIT psych f/u see TE AT Social History Sex Assigned At : Social History Observation Description Sex Assigned At Male Encounters Encounter Location [place] [address] 05/24/2024 Ale Gamboa Plan Of Treatment Next Appt Details Provider Name:Sara beltran, 06/11/2024 04:30:00 PM, [address] [place] [address], [id number], Provider Name:Ale Gamboa , 06/18/2024 02:40:00 PM, [address] [place] [address], [address], Progress Notes * Diaz RODRIGUEZOB:[birth year] (18 yo M)Acc No.[id number]:05/24/2024 [facility] Phone Patient:?Bryant RODRIGUEZ Provider:?Ale Gamboa APRN :2005???Age:18 Y???Sex:Male Miguelangel e:05/24/2024 External Visit ID:[id number] Address:[address] [place] [address], [address], [place], [facility] Pcp:Renetta Cordoba Subjective: * Chief Complaints: * ???1. psych f/u see TE AT. * Medical History:? Objective: * Vitals:? * Physical Examination:? Assessment: Plan: * Treatment: Care Plan: * Problems:? * Billing Information: * Visit Code:? * Procedure Codes:? Care Plan Details* * Electronic signature of Candis Gamboa APRN on 06/08/2024 at 02:02 PM EDT Sign off status: Pending * Provider:?Ale Gamboa APRN Date:? Generated for Vito hennessy/Rush/Simone on:?06/08/2024 02:02 PM EDT
--- OUTSIDE RECORDS SUMMARY | 2024-06-08 14:03 | XMS_ITS | Clinical Summary ---
Author Organization [employer] Address [address] [place] [address] Care Team Providers Care Telehealth Case Manager Name Role Phone Unknown Primary Care Provider [phone] Social History Tobacco Use Types Packs/Day Years Used Date Smoking Tobacco: Never Assessed Sex and Gender Information Value Date Recorded Sex Assigned at Male 12/31/2022 9:22 AM EDT Gender Identity Not on file Sexual Orientation Not on file Plan of Treatment Health Maintenance Due Date Last Done Comments Hepatitis C Virus Screening 2005 HIV Screening 08/03/2016 HPV Vaccines (1 - Male 3-dos e series) 08/03/2018 DTaP/Tdap/Td Vaccines (1 - Tdap) 08/03/2022 Hepatitis B Vaccines (1 of 3 - 19+ 3-dose series) 08/03/2022 Influenza Vaccine 10/06/2023 03/19/2021, 12/27/2019, 01/13/2005 COVID-19 Vaccine ( - 2023-2 5 season) 2023 03/09/2021, 07/23/2020, 07/01/2020 Pneumococcal Vaccine: Pediatric (0-5 Years) and At-Risk Patients (6 to 49 Years) Aged Out No longer eligible b ased on patient's age to complete this topic Care Teams Telehealth Case Manager Relationship Specialty Start Date End Date Unknown Unknow Provider Address PCP - General 12/31/22
== END 2024-06-08 12:15 | disposition home or self-care (01) ==
PROVIDERS: Emergency Provider Emergency Medicine
DX: K04.7 Periapical abscess without sinus (principal); K08.89 Other specified disorders of teeth and supporting structures
CPT/HCPCS: 99282; 99283